=== PATIENT | male | born 2000 | race Caucasian/White ===

== ENCOUNTER 2020-07-06 00:03 | Emergency (ER) | payer SELFPAY ==
[2020-07-06 00:04] VITALS: BP 141/80; PULSE 102; RESP 16; TEMP 36.8; O2SAT 99; BMI 23.7
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
[2020-07-06] MEDS: iohexol 300 mg/mL 100 mL Btl IV (00:25)
[2020-07-06 00:28] LABS: Basophils % 0.3 %; Eosinophils % 0.3 %; Hematocrit 48.6 % (42.0-52.0); Hemoglobin 16.4 g/dL (11.7-16.6); Lymphocytes # 1.3 10^3/uL (1.5-6.5); Lymphocytes % 22.9 %; Mean Corpuscular HGB Conc 33.7 g/dL (30.0-36.0); Mean Corpuscular Hemoglobin 31.1 pg (28.0-34.0); Mean Corpuscular Volume 92.2 fL (80-94); Mean Platelet Volume 9.3 fL (7.4-10.4); Monocytes # 0.6 10^3/uL (0.2-0.9); Monocytes % 9.6 %; Neutrophils # 3.81 10^3/uL (1.8-8.0); Neutrophils % 66.6 %; Nucleated Red Blood Cells % 0 %; Platelet Count 286 10^3/cmm (130-400); Red Blood Count 5.27 10^6/uL (4.1-5.3); Red Cell Distribution Width 11.8 % (12.1-15.1); White Blood Count 5.7 10^3/uL (4.5-13.0)
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
[2020-07-06 00:46] LABS: Alcohol Level 76 mg/dL (0-10); Anion Gap 20.1 (5-19); Blood Urea Nitrogen 10 mg/dL (6-20); Calcium 9.6 mg/dL (8.5-10.5); Carbon Dioxide 22 mmol/L (22-29); Chloride 103 mmol/L (98-107); Glomerular Filtration Rate 107.6 mL/min (90-130); Glucose 102 mg/dL (65-115); Osmolality Calculated 293 mOsm/kg (285-295); Potassium 3.1 mmol/L (3.5-5.1); Sodium 142 mmol/L (136-145)
[2020-07-06 01:36] VITALS: BP 133/54; PULSE 84; RESP 18; O2SAT 99
== END 2020-07-06 01:38 | disposition home or self-care (01) ==
PROVIDERS: Emergency Provider Emergency Medicine
DX: S01.81XA Laceration without foreign body of other part of head, initial encounter (principal); V89.2XXA Person injured in unspecified motor-vehicle accident, traffic, initial encounter
CPT/HCPCS: 12011; 70450; 70486; 71260; 72125; 74177; 80048; 80307; 85025; 99283; Q9967